=== PATIENT | female | born 1945 | race Caucasian/White ===

== ENCOUNTER → 2023-09-30 | Outpatient (REF) | payer MEDICARE ==
[~2023-09-30] MED LIST: ASPIRIN325 MG PO; LISINOPRIL10 MG PO; LOVASTATIN40 MG PO; PANTOPRAZOLE SO40 MG PO; PLAVIX75 MG PO; PROMETHAZINE-D118 ML PO; REGADENOSON 0.4 MG/5 ML SYR IV ONE
== END | disposition home or self-care (01) ==
LOC: NM 09:12
PROVIDERS: ATTEND Internal Medicine Cardiovascular Disease
DX: I25.10 Atherosclerotic heart disease of native coronary artery without angina pectoris (principal); E78.5 Hyperlipidemia, unspecified; Z88.8 Allergy status to other drugs, medicaments and biological substances; Z79.02 Long term (current) use of antithrombotics/antiplatelets; Z79.82 Long term (current) use of aspirin; Z79.899 Other long term (current) drug therapy; Z95.5 Presence of coronary angioplasty implant and graft
CPT/HCPCS: 78452; 93017; A9502; J2785